=== PATIENT | female | born 1985 | race Caucasian/White ===

== ENCOUNTER 2018-11-11 14:48 | Emergency (ER) | payer OTHER ==
[~2018-11-11] VITALS: Ht 154.9 cm; Wt 68.0 kg
[~2018-11-11 14:48] MED LIST: ACCUNEB SO1.25 MG/1; ACETAMINOPHEN-1 EAC1 PO; ALBUTEROL INHAL17 GM IH; ALBUTEROL NEB; ALBUTEROL2.5 MG/31 IH; AMOXICILLIN 50500 MG PO; AZITHROMYCIN 2250 MG PO; BACTRIM DS TAB1 EACH PO; DELTASONE20 MG PO; DUONEB 2.5-0.5 M3 ML IH; FLEXERIL PO; HYDROCODON-ACE1 EAC7 PO; HYDROCODONE-AP1 EAC6 PO; IBUPROFEN 800800 M1 PO; JOLIVETTE; LIDOCAINE VISC100 M1 SWISH&SPIT; LORTAB 5-500 T1 EAC1 PO; MEDROLDOSEPACK PO; NOHOMEMEDICATIONS; NORCO 5-325 TA1 EAC1 PO; NORCO 5-325 TA1 EACH PO; PENICILLIN V P500 MG PO; PEPCID20 MG PO; PREDNISONE 20 M20 M1 PO; PREDNISONE 20 M20 MG PO; PREDNISONE50 MG PO; PRENATAL; PRENATAL TABLE1 EAC1 PO; PROAIR HFA8.5 GM; PROAIR HFA8.5 GM IH; PROAIR HFA8.5 GM INH; PROVENTIL IN; ROBAXIN 750 MG750 M1 PO; SYMBICORT80 MCG/4.1; SYMBYAX 6-50 M1 EACH PO; TESSALON200 MG PO; TRAMADOL 50 MG50 MG PO; ULTRAM 50MG TAB50 MG PO; VENTOLIN HFA 1818 GM INH; VICODIN 5-5001 EACH PO; ZPAK PO; ZYRTEC10 M2
[2018-11-11 14:52] VITALS: BP 104/75
[2018-11-11] MEDS ORDERED: ULTRAM 50MG TAB50 MG PO (15:00)
[2018-11-11] MEDS ORDERED: AMOXICILLIN 50500 MG PO (15:00)
== END 2018-11-11 15:03 | disposition home or self-care (01) ==
LOC: M.ERS 14:48
DX: K02.9 Dental caries, unspecified (principal); J45.909 Unspecified asthma, uncomplicated; F17.210 Nicotine dependence, cigarettes, uncomplicated; Z98.51 Tubal ligation status; Z98.890 Other specified postprocedural states

== ENCOUNTER 2018-11-13 15:43 | Emergency (ER) | payer OTHER ==
[~2018-11-13] VITALS: Ht 154.9 cm; Wt 68.0 kg
[2018-11-13] MEDS ORDERED: LIDOCAINE VISC100 ML SWISH&SPIT (16:10)
[2018-11-13] MEDS ORDERED: TRAMADOL 50 MG50 MG PO (16:10)
[2018-11-13] MEDS ORDERED: CLEOCIN HCL150 MG PO (16:10)
[2018-11-13 16:16] VITALS: BP 121/59
== END 2018-11-13 16:16 | disposition home or self-care (01) ==
LOC: M.ERS 15:43
DX: K02.9 Dental caries, unspecified (principal); J45.909 Unspecified asthma, uncomplicated; F17.210 Nicotine dependence, cigarettes, uncomplicated; Z98.890 Other specified postprocedural states; Z98.51 Tubal ligation status